=== PATIENT | female | born 1980 | race Asian ===

== ENCOUNTER → 2019-01-17 06:41 | Day surgery (SDC) | payer OTHER ==
[~2019-01-17 06:41] MED LIST: Buffered Lidocaine 1% SYRIN* 1 ML/SYRINGE INTRADERM ONE; Dexamethasone IV* 4 MG/ML 1 ML (4 MG) IV SLOW PU ONE; Dexamethasone IV* 4 MG/ML 1 ML (4 MG) ONE; DiMENhydriNATE IV* 50 MG/ML VIAL IV PUSH PRN; Famotidine IV* 10 MG/ML 2 ML (20 mg) IV ONE; Famotidine IV* 10 MG/ML 2 ML (20 mg) ONE; Ketorolac INJ* 30 MG/ML 1 ML VIAL ONE; Lactated Ringers 1000 ML Bag* 1,000 ML IV SCH; Lidocaine 2% PF * 5 ML VIAL ONE; Naloxone* 0.4 MG/ML 1 ML VIAL IV PRN; Ondansetron INJ* 2 MG/ML VIAL ONE; Propofol* 10 MG/ML 20 ML BTL ONE; Silver Nitrate/Potassium Nitr* 1 EA STICK ONE; fentaNYL* 50 MCG/ML 2 ML VIAL (100 MCG VIAL) IV PRN; fentaNYL* 50 MCG/ML 2 ML VIAL (100 MCG VIAL) ONE
[2019-01-17 10:25] VITALS: BP 107/75
--- NOTE | 2019-01-17 12:27 | OP ---
OPERATIVE NOTE: DATE OF OPERATION: 01/17/19 DATE OF : 84 SURGEON: Tohsia Arguelles MD. PROPOSAL WRITER: None PRE-OP DIAGNOSES: 1. Intermenstrual spotting. 2. Endometrial polyp on ultrasound. POST-OP DIAGNOSES: 1. Intermenstrual spotting. 2. Endometrial polyp on ultrasound. OPERATIVE PROCEDURE: D and C, hysteroscopy, polypectomy. ESTIMATED BLOOD LOSS: Minimal. FLUIDS: Crystalloid. DRAINS: 150 mL clear urine drained prior to the procedure. FINDINGS: Several small endometrial polyps. COMPLICATIONS: None. COUNTS: Correct. DESCRIPTION OF PROCEDURE: After informed consent was signed, the patient was taken to the operating room where she was given general anesthesia that was found to be adequate. She was prepped and drape d in the dorsal lithotomy position in the [facility]. The bladder was drained of urine, then the 2 speculums were placed into the vagina to expose the cervix. The anterior lip of the cervix was gr asped with a single-tooth tenaculum. The cervix was dilated until the MyoSure device could be insert ed. The uterine cavity was inspected and several small polyps were noted. The MyoSure light was then inserted and used to remove the polyp until they are flush with the endometrium. The MyoSure was th en removed. The tenaculum was removed with good hemostasis with silver nitrate. The speculums were removed. The patient was awaken from anesthesia, moved to the stretcher and taken to the recovery ro om in stable condition. [id number] #: [id number]
== END | disposition home or self-care (01) ==
LOC: OR 06:41
PROVIDERS: ATTEND Obstetrics & Gynecology
DX: N92.0 Excessive and frequent menstruation with regular cycle (principal); D25.0 Submucous leiomyoma of uterus; K21.9 Gastro-esophageal reflux disease without esophagitis
CPT/HCPCS: 36415; 81025; 86850; 86900; 86901; 88305; A9270-GY; J1100; J1885; J2405; J2704; J3010

== ENCOUNTER 2022-02-11 17:07 | Inpatient (IN) ==
[2022-02-11] MEDS ORDERED: Promethazine INJ(RESTRICTED) 25 MG/ML 1 ml VIAL IV PRN (18:30)
[2022-02-11] MEDS ORDERED: Buffered Lidocaine 1% SYRIN 1 ml INTRADERM ONE (18:30)
[2022-02-11] MEDS ORDERED: Lactated Ringers 1000 ml BAG 1,000 ML IV ONE (18:30)
[2022-02-11] MEDS ORDERED: Nalbuphine 10 MG/ML 1 ML VIAL IV PRN ×2 (18:30→18:43)
[2022-02-11 19:04] LABS: Urine Benzodiazepine Screen None Detected (None Detect); Urine Cannabinoids Screen None Detected (None Detect); Urine Opiates Screen None Detected (None Detect)
[2022-02-11] MEDS ORDERED: Dinoprostone 10 MG VAG.SUPP VAGINAL ONE (19:54)
[2022-02-11 20:45] LABS: ABS Basophils 0.1 10^3/ul (0-0.2); ABS Lymphocytes 1.6 10^3/ul (1.0-4.8); ABS Monocytes 0.3 10^3/ul (0-0.8); ABS Neutrophils 4.2 10^3/ul (1.5-7.7); Eosinophil % 0.7 %; Hematocrit 41 % (35-47); Hemoglobin 13.8 g/dL (12.0-16.0); Lymphocyte % 25.5 %; Mean Corpuscular HGB Conc 34 g/dL (31-36); Mean Corpuscular Hemoglobin 34 pg (27-31); Mean Corpuscular Volume 100 fL (80-97); Mean Platelet Volume 7.9 fL (7.4-10.4); Platelet Count 204 10^3/uL (150-450); Red Cell Distribution Width 13 % (10-15); White Blood Count 6.2 10^3/uL (3.5-10.8)
[2022-02-11 20:58] LABS: Activated Partial Thrombo Time 31.1 seconds (26.0-38.0); Fibrinogen 397.8 mg/dL (110.8-404.3)
[2022-02-11 20:59] LABS: Platelet Count 204 10^3/ul (150-450)
[2022-02-11 21:28] LABS: Schistocytes ABSENT
[2022-02-12] MEDS ORDERED: Oxytocin in LR 20,000 MILLI.UNIT/1,000 ML BAG IV SCH (09:45)
[2022-02-12] MEDS: Lactated Ringers 1000 ml BAG 1,000 ML IV SCH (12:15)
[2022-02-12] MEDS ORDERED: Dinoprostone 10 MG VAG.SUPP VAGINAL ONE (19:28)
[2022-02-13] MEDS ORDERED: Oxytocin in LR 20,000 MILLI.UNIT/1,000 ML BAG IV SCH (10:47)
[2022-02-13] MEDS ORDERED: Oxytocin in LR 20,000 MILLI.UNIT/1,000 ML BAG IV ONE (10:52)
[2022-02-13] MEDS: Lactated Ringers 1000 ml BAG 1,000 ML IV SCH ×2 (16:00→21:15)
[2022-02-13] MEDS ORDERED: OBEPIDURAL (200 ML) 200 ML EPIDURAL ONE (20:01)
[2022-02-13] MEDS ORDERED: Lactated Ringers 1000 ml BAG 500 ML IV PRN (20:39)
[2022-02-13] MEDS ORDERED: Sodium Citrate/Citric Acid LIQ 15 ML UDC PO PRN (20:39)
[2022-02-13] MEDS ORDERED: Lactated Ringers 1000 ml BAG 1,000 ML IV ONE (20:39)
[2022-02-13] MEDS ORDERED: Phenylephrine 40 mcg/mL 10mL (400mcg) SYRINGE IV PUSH PRN ×2 (20:39)
[2022-02-13] MEDS ORDERED: Lactated Ringers 1000 ml BAG 1,000 ML IV SCH ×2 (21:00)
[2022-02-13] MEDS ORDERED: OBEPIDURAL (200 ML) 200 ML EPIDURAL SCH (21:00)
[2022-02-13 21:56] LABS: Urine Appearance Clear; Urine Bilirubin Negative (Negative); Urine Blood Negative (Negative); Urine Color Straw; Urine Glucose Negative (Negative); Urine Ketones 2+ (Negative); Urine Nitrite Negative (Negative); Urine Protein Negative (Negative); Urine Urobilinogen Negative (Negative)
[2022-02-14] MEDS ORDERED: Lidocaine 1% VIAL 10 MG/ML VIAL 30 ML ONE (09:00)
[2022-02-14] MEDS ORDERED: Witch Hazel PAD JAR TOPICAL PRN (09:14)
[2022-02-14] MEDS ORDERED: Oxytocin in LR 20,000 MILLI.UNIT/1,000 ML BAG IV SCH (09:15)
[2022-02-14] MEDS ORDERED: Lactated Ringers 1000 ml BAG 1,000 ML IV SCH (10:00)
[2022-02-14] MEDS ORDERED: Methylergonovine 0.2 mg AMPULE 1 ml AMP ONE (11:34)
[2022-02-15 06:19] LABS: ABS Eosinophils 0.1 10^3/ul (0-0.6); ABS Lymphocytes 1.9 10^3/ul (1.0-4.8); ABS Monocytes 0.7 10^3/ul (0-0.8); ABS Neutrophils 8.5 10^3/ul (1.5-7.7); Eosinophil % 0.6 %; Hematocrit 31 % (35-47); Hemoglobin 10.5 g/dL (12.0-16.0); Lymphocyte % 16.7 %; Mean Corpuscular HGB Conc 34 g/dL (31-36); Mean Corpuscular Hemoglobin 34 pg (27-31); Mean Corpuscular Volume 100 fL (80-97); Mean Platelet Volume 7.5 fL (7.4-10.4); Platelet Count 169 10^3/uL (150-450); Red Blood Count 3.13 10^6 /uL (3.70-4.87); Red Cell Distribution Width 13 % (10-15); White Blood Count 11.2 10^3/uL (3.5-10.8)
[2022-02-15] MEDS: Dibucaine 1% OINT 28.35 GM TUBE PR PRN (11:13)
[2022-02-16] MEDS: Dibucaine 1% OINT 28.35 GM TUBE PR PRN (08:15)
[2022-02-16 09:13] VITALS: BP 95/57
== END 2022-02-16 11:42 | disposition home or self-care (01) | DRG 807 ==
LOC: MCHOBOUT 17:07 → MCHOB 18:16
PROVIDERS: ADMIT Midwife; ATTEND Midwife

== ENCOUNTER 2023-11-26 21:34 | Inpatient (IN) ==
[2023-11-26] MEDS ORDERED: Lidocaine 1% VIAL 10 MG/ML 30 ML VIAL INJ PRN (21:56)
[2023-11-26 23:09] LABS: Urine Benzodiazepine Screen None Detected (None Detect); Urine Cannabinoids Screen None Detected (None Detect); Urine Opiates Screen None Detected (None Detect)
[2023-11-26 23:27] LABS: ABS Monocytes 0.4 10^3/uL (0.0-0.9); ABS Neutrophils 4.3 10^3/uL (1.5-7.6); ABS Nucleated RBC 0.01 10^3/ul; Eosinophil % 0.5 %; Hematocrit 36.5 % (35-45); Hemoglobin 12.8 g/dL (11.5-14.3); Lymphocyte % 29.3 %; Mean Corpuscular Hemoglobin 33.9 pg (27-33); Mean Platelet Volume 9.1 fL (7.5-11.2); Nucleated Red Blood Cells % 0.1 %/100WBC (0.0-0.8); Platelet Count 205 10^3/uL (150-450); Red Blood Count 3.76 10^6/uL (3.63-4.92); Red Cell Distribution Width 13.3 % (12-17); White Blood Count 6.9 10^3/uL (3.8-11.8)
[2023-11-27] MEDS: Lactated Ringers 1000 ml BAG 1,000 ML IV SCH ×2 (09:57→21:32)
[2023-11-27] MEDS: Oxytocin in LR 20,000 MILLI.UNIT/1,000 ML BAG IV SCH ×2 (09:57→18:19)
[2023-11-27] MEDS: Lactated Ringers 1000 ml BAG 1,000 ML IV ONE ×2 (12:09→21:33)
[2023-11-27] MEDS ORDERED: Sodium Citrate/Citric Acid LIQ 15 ML UDC PO PRN (12:42)
[2023-11-27] MEDS ORDERED: Phenylephrine 40 mcg/mL 10mL (400mcg) SYRINGE IV PUSH PRN ×2 (12:42)
[2023-11-27] MEDS: Lidocaine 1.5% EPI 1:200,000 30 ML SDV ONE (12:43)
[2023-11-27] MEDS: OBEPIDURAL (200 ML) 200 ML EPIDURAL ONE (12:52)
[2023-11-27 14:29] LABS: Urine Appearance Clear; Urine Bilirubin Negative (Negative); Urine Blood Trace (Negative); Urine Color Colorless; Urine Glucose Negative (Negative); Urine Ketones Negative (Negative); Urine Nitrite Negative (Negative); Urine Protein Negative (Negative); Urine Specific Gravity 1.004 (1.002-1.030); Urine Urobilinogen Negative (Negative)
[2023-11-27] MEDS ORDERED: Glycerin ADULT 2.4 gm SUPP PR PRN (15:59)
[2023-11-27] MEDS ORDERED: Lactated Ringers 1000 ml BAG 1,000 ML IV SCH (16:00)
[2023-11-28] MEDS: OBEPIDURAL (200 ML) 200 ML EPIDURAL SCH (04:07)
[2023-11-28 06:59] LABS: ABS Eosinophils 0.1 10^3/uL (0.0-0.5); ABS Monocytes 0.3 10^3/uL (0.0-0.9); ABS Neutrophils 5.4 10^3/uL (1.5-7.6); Eosinophil % 0.6 %; Hematocrit 36.6 % (35-45); Hemoglobin 12.6 g/dL (11.5-14.3); Lymphocyte % 25.5 %; Mean Corpuscular Hemoglobin 33.6 pg (27-33); Mean Corpuscular Hgb Conc 34.5 g/dL (31-36); Mean Corpuscular Volume 97.4 fL (80-97); Mean Platelet Volume 8.4 fL (7.5-11.2); Platelet Count 186 10^3/uL (150-450); Red Blood Count 3.75 10^6/uL (3.63-4.92); Red Cell Distribution Width 13.3 % (12-17); White Blood Count 7.8 10^3/uL (3.8-11.8)
[2023-11-28] MEDS: Witch Hazel PAD JAR TOPICAL PRN (07:45)
[2023-11-28] MEDS: Dibucaine 1% OINT 28.35 GM TUBE PR PRN (07:45)
[2023-11-28 08:06] VITALS: BP 96/62
== END 2023-11-28 16:27 | disposition home or self-care (01) | DRG 807 ==
LOC: MCHOBOUT 21:34 → MCHOB 21:59
PROVIDERS: ADMIT Midwife; ATTEND Advanced Practice Midwife